=== PATIENT | male | born 1945 | race Two or more races ===

== ENCOUNTER 2017-11-12 16:37 | Emergency (ER) | payer MEDICARE ==
[~2017-11-12] VITALS: Ht 165.1 cm; Wt 83.0 kg
--- NOTE | 2017-11-12 16:45 | NUR ---
Dr Hwang at [facility] for eval.
--- NOTE | 2017-11-12 16:50 | NUR ---
AAOX1, c/o altered mental status last known well was 1030am per son's report. RR is even and unlabored with NAD noted. Skin is warm and dry. Placed on the monitor. Will continuously monitor the patient. Awaiting MD for eval.
--- NOTE | 2017-11-12 16:54 | NUR ---
[facility]OKE CALLED
--- NOTE | 2017-11-12 16:56 | NUR ---
PT TO CT
[2017-11-12] MEDS ORDERED: IOHEXOL-350 100 ML VIAL IV ONE (16:58)
--- NOTE | 2017-11-12 16:58 | NUR ---
CALLED [facility]'S TELESTROKE HOTLINE, SPOKE WITH DANA, PRESENTED PT, AWAITING CALL BACK FROM (NEUROLOGIST).
[2017-11-12 17:02] LABS: NEUTROPHILS # (AUTO) 6.2 /CMM (1.8-8.9)
[2017-11-12 17:06] LABS: BASOPHILS # (AUTO) 0.4 /CMM (0.0-0.2); BASOPHILS % (AUTO) 4.5 % (0.0-2.0); EOSINOPHILS % (AUTO) 0.9 % (0.0-6.0); HEMATOCRIT 42 % (39-51); HEMOGLOBIN 14.4 g/dL (13.5-17.5); LYMPHOCYTES # (AUTO) 1.3 /CMM (0.8-4.8); LYMPHOCYTES % (AUTO) 15.1 % (20.0-44.0); MEAN CORPUSCULAR HGB CONC 34 g/dl (31.0-36.0); MEAN CORPUSCULAR VOLUME 94 fL (80-96); MONOCYTES # (AUTO) 0.6 /CMM (0.1-1.30); MONOCYTES % (AUTO) 7.2 % (2.0-12.0); NEUTROPHILS % (AUTO) 72.3 % (43.0-81.0); PLATELET COUNT (AUTO) 199 /CMM (150-450); RDW COEFFICIENT OF VARIATION 11.8 (11.5-15.0); RED BLOOD CELL COUNT(AUTO) 4.44 MIL/uL (4.5-6.0); WHITE BLOOD COUNT (AUTO) 8.6 K/uL (4.3-11.0)
--- NOTE | 2017-11-12 17:09 | NUR ---
BACK FROM CT
[2017-11-12 17:13] LABS: CARBON DIOXIDE 24 mmol/L (21-32); CHLORIDE 104 mmol/L (98-107); CREATININE 1.3 mg/dL (0.6-1.3); GLUCOSE 98 mg/dL (74-106); SODIUM SERUM 138 mmol/L (136-145); UREA NITROGEN, BLOOD 15 mg/dL (7-18)
[2017-11-12 17:17] LABS: INR 0.96 (0.85-1.15)
[2017-11-12] MEDS: LEVETIRACETAM (500MG) 1,000 MG in IV NS 0.9% 100 ML IV SCH ×2 (17:20→17:44)
[2017-11-12 17:22] LABS: TROPONIN I < 0.017 ng/mL (0.00-0.056)
[2017-11-12] MEDS ORDERED: LABETALOL HCL IV 100MG VIAL IV ONE (17:30)
[2017-11-12] MEDS ORDERED: LABETALOL HCL IV 100MG VIAL ONE (17:33)
--- NOTE | 2017-11-12 17:38 | NUR ---
RECEIVED CALL FROM NUNO AT [facility], GAVE HER PT INFO AND FAXED HER FACESHEET TO [phone]
--- NOTE | 2017-11-12 17:50 | NUR ---
RECEIVED CALL FROM NUNO AT [facility], PT ACCEPTED BY , GOING TO ROOM 4517, NUMBER TO GIVE REPORT IS [phone] EXT. [phone]
--- NOTE | 2017-11-12 17:54 | NUR ---
Patient left the ER transferred to [facility]. Report given to JOSE Thorne ICU Bed 4517 for continuity of care.
[2017-11-12 18:17] VITALS: BP 138/65
[2017-11-12 18:23] LABS: CHOLESTEROL 152 mg/dL (<200); HDL CHOLESTEROL 47 mg/dL (40-60); LDL 100 mg/dL (0-99)
[2017-11-12 18:36] LABS: TRIGLYCERIDES 65 mg/dL (30-150)
== END 2017-11-12 17:54 | disposition short-term general hospital (02) ==
LOC: ER 16:39
DX: I61.9 Nontraumatic intracerebral hemorrhage, unspecified (principal); G93.89 Other specified disorders of brain; I10 Essential (primary) hypertension; F17.200 Nicotine dependence, unspecified, uncomplicated; Z86.73 Personal history of transient ischemic attack (TIA), and cerebral infarction without residual deficits
CPT/HCPCS: 36415; 70450-TC; 70496-TC; 70498-TC; 71045-TC; 80048-TC; 80061-TC; 82962-TC; 84484-TC; 85025-TC; 85730-TC; A4606; J1953; J3490; J7030; J7040; Q9967; Z7610

== ENCOUNTER 2017-12-13 20:44 | Emergency (ER) | payer MEDICARE, MEDICAID ==
[~2017-12-13] VITALS: Ht 167.6 cm; Wt 61.2 kg
--- NOTE | 2017-12-13 21:00 | NUR ---
PT A/O X4. PT STABLE. VSS. PT NEG ACUTE DISTRESS. NEG N/V. SAFETY MEASURES IN PLACE.
[2017-12-13 23:14] LABS: BASOPHILS % (AUTO) 0.2 % (0.0-2.0); EOSINOPHILS % (AUTO) 1.2 % (0.0-6.0); HEMATOCRIT 34 % (39-51); HEMOGLOBIN 11.6 g/dL (13.5-17.5); LYMPHOCYTES # (AUTO) 1.3 /CMM (0.8-4.8); LYMPHOCYTES % (AUTO) 13.6 % (20.0-44.0); MEAN CORPUSCULAR HGB CONC 34 g/dl (31.0-36.0); MEAN CORPUSCULAR VOLUME 99 fL (80-96); MONOCYTES # (AUTO) 0.8 /CMM (0.1-1.30); MONOCYTES % (AUTO) 8.4 % (2.0-12.0); NEUTROPHILS # (AUTO) 7.1 /CMM (1.8-8.9); NEUTROPHILS % (AUTO) 76.6 % (43.0-81.0); PLATELET COUNT (AUTO) 275 /CMM (150-450); RDW COEFFICIENT OF VARIATION 13.3 (11.5-15.0); RED BLOOD CELL COUNT(AUTO) 3.42 MIL/uL (4.5-6.0); WHITE BLOOD COUNT (AUTO) 9.3 K/uL (4.3-11.0)
[2017-12-13 23:33] LABS: CALCIUM, SERUM 9.4 mg/dL (8.5-10.1); CREATININE 1.1 mg/dL (0.6-1.3); POTASSIUM 4.1 mmol/L (3.5-5.1)
[2017-12-13 23:36] LABS: BILIRUBIN,DIRECT 0.1 mg/dL (0.0-0.2); BILIRUBIN,TOTAL 0.5 mg/dL (0.2-1.0)
[2017-12-14 00:22] VITALS: BP 156/84
--- NOTE | 2017-12-14 00:24 | NUR ---
Patient discharged to home in stable condition. Written and verbal after care instructions given. Patient verbalizes understanding of instruction.IV removed. Catheter intact and site benign. Pressure and 4x4 applied to site. No bleeding noted. VSS UPON DISCHARGE
== END 2017-12-14 00:23 | disposition home or self-care (01) ==
LOC: ER 20:46
DX: K59.00 Constipation, unspecified (principal); K56.41 Fecal impaction; F17.200 Nicotine dependence, unspecified, uncomplicated; I10 Essential (primary) hypertension; Z86.73 Personal history of transient ischemic attack (TIA), and cerebral infarction without residual deficits
CPT/HCPCS: 36415; 80048; 80076; 83605; 83690; 85025; 99284; A4606; Z7610